=== PATIENT | male | born 1995 | race Caucasian/White ===

== ENCOUNTER 2024-10-19 22:33 | Emergency (ER) | payer OTHER ==
[2024-10-19 22:40] VITALS: RESP 18; BMI 37.2
[2024-10-19 22:50] VITALS: BP 182/91; PULSE 99; TEMP 98.3
[2024-10-19] MEDS ORDERED: ACETAMINOPHEN INJECTION 100 ML ONE (23:10)
[2024-10-19] MEDS ORDERED: ONDANSETRON 4 MG/2 ML VIAL ONE (23:11)
[2024-10-19] MEDS: SODIUM CHLORIDE 1,000 ML IV STA (23:16)
[2024-10-19] MEDS: ACETAMINOPHEN 1000 MG/100 ML BAG IVPB ONE (23:16)
[2024-10-19] MEDS: ONDANSETRON 4 MG/2 ML VIAL IVPUSH ONE (23:16)
[2024-10-19 23:22] LABS: HEMATOCRIT 40.8 % (35.4-49); HEMOGLOBIN 13.7 G/dL (11.7-16.9); MCH 28.5 pg (25.7-33.7); MCHC 33.6 g/dl (32.0-35.9); MEAN CELL VOLUME 84.8 fl (80-96); MEAN PLT VOLUME 9.5 fl (7.5-11.1); PLATELET COUNT 287.8 10^3/uL (134-434); RBC 4.81 10^6/uL (4.00-5.60); RDW 14.4 % (11.9-15.9); WHITE BLOOD COUNT 16.1 10^3/uL (4.0-10.8)
[2024-10-19 23:41] LABS: ALBUMIN 4.8 g/dl (3.4-5.0); BILIRUBIN,TOTAL 0.3 mg/dl (0.2-1); CALCIUM 10.1 mg/dl (8.5-10.1); CREATININE 1.1 mg/dl (0.6-1.3); TOT PROT 7.6 g/dl (6.4-8.2)
[2024-10-20] MEDS: SODIUM CHLORIDE 1,000 ML IV STA (00:34)
[2024-10-20 01:44] LABS: HIV INTERPRETATION NEGATIVE (NEGATIVE)
== END 2024-10-20 02:27 | disposition home or self-care (01) ==
LOC: FER 22:33
PROC: 3E033NZ Introduction of Analgesics, Hypnotics, Sedatives into Peripheral Vein, Percutaneous Approach (ICD-10-PCS; principal; 2024-10-19)
PROC: 3E033GC Introduction of Other Therapeutic Substance into Peripheral Vein, Percutaneous Approach (ICD-10-PCS; 2024-10-19)
PROC: 3E0337Z Introduction of Electrolytic and Water Balance Substance into Peripheral Vein, Percutaneous Approach (ICD-10-PCS; 2024-10-19)
PROC: 3E0337Z Introduction of Electrolytic and Water Balance Substance into Peripheral Vein, Percutaneous Approach (ICD-10-PCS; 2024-10-20)
DX: K57.32 Diverticulitis of large intestine without perforation or abscess without bleeding (principal); N13.2 Hydronephrosis with renal and ureteral calculous obstruction; R11.2 Nausea with vomiting, unspecified; R19.7 Diarrhea, unspecified; R10.30 Lower abdominal pain, unspecified; Z20.822 Contact with and (suspected) exposure to COVID-19
CPT/HCPCS: 0241U-QW; 36415; 74177-TC; 80053; 85027; 86803; 87389; 99285-25; J0131; Q9967